=== PATIENT | female | born 1995 ===

== ENCOUNTER → 2022-03-11 | Outpatient (CLI) | payer OTHER ==
[2022-03-16 15:08] LABS: HPV 16 Negative (Negative); HPV 18 Negative (Negative); HPV OTHER HR TYPES Negative (Negative)
== END | disposition home or self-care (01) ==
LOC: LAB SHORT 16:45 → LAB 16:45
PROVIDERS: Physician Assistant
DX: Z01.419 Encounter for gynecological examination (general) (routine) without abnormal findings (principal)
CPT/HCPCS: 87624; G0145

== ENCOUNTER → 2024-09-20 | Outpatient (CLI) | payer OTHER | LOC: LAB SHORT 11:29 → LAB 11:29 | DX: R30.0 Dysuria (principal) | CPT/HCPCS: 87086 ==

== ENCOUNTER → 2024-11-01 | Outpatient (CLI) | payer OTHER | LOC: LAB 17:00 → LAB SHORT 17:00 | DX: Z34.02 Encounter for supervision of normal first pregnancy, second trimester (principal) | CPT/HCPCS: 87086 ==

== ENCOUNTER → 2024-12-10 | Outpatient (CLI) | payer OTHER | LOC: LAB 13:56 → LAB SHORT 13:56 | DX: R30.0 Dysuria (principal) | CPT/HCPCS: 87086 ==

== ENCOUNTER → 2025-02-12 | Outpatient (CLI) | payer OTHER | LOC: LAB 09:58 → LAB SHORT 09:58 | DX: Z34.03 Encounter for supervision of normal first pregnancy, third trimester (principal); Z3A.36 36 weeks gestation of pregnancy | CPT/HCPCS: 87081; 87086 ==

== ENCOUNTER → 2025-02-26 | Outpatient (CLI) | payer OTHER | LOC: LAB 19:42 → LAB SHORT 19:42 | DX: R30.0 Dysuria (principal) | CPT/HCPCS: 87086 ==

== ENCOUNTER 2025-03-12 18:30 | Inpatient (IN) | payer OTHER ==
[~2025-03-12] VITALS: Ht 162.6 cm; Wt 90.4 kg
[2025-03-12] MEDS ORDERED: FentaNYL Citrate 50 MCG/ML 2 ML Injection IV PRN (18:50)
[2025-03-12] MEDS ORDERED: Oxytocin 10 Unit / ML Vial IM PRN (18:50)
[2025-03-12] MEDS ORDERED: Carboprost Tromethamine 250 MCG/ML 1ML Amp IM PRN (18:50)
[2025-03-12] MEDS ORDERED: Tranexamic Acid 100 ML IV PRN (18:50)
[2025-03-12] MEDS ORDERED: Methylergonovine Maleate 0.2MG / ML 1ML Amp IM PRN (18:50)
[2025-03-12] MEDS ORDERED: Ondansetron HCl 2 MG / ML 2ML Vial IV PRN (18:55)
[2025-03-12] MEDS ORDERED: FentaNYL 2mcg/ml-Bup 0.1% Epd 250 ML EPI PRN (19:30)
[2025-03-12] MEDS ORDERED: ePHEDrine Sulfate 50 MG/ML 1ML Injection XX PRN (19:30)
[2025-03-12] MEDS ORDERED: FAMO40 PO ×2 (20:12)
[2025-03-12 20:22] LABS: BASOPHILS ABSOLUTE AUTO 0.04 K/mm3 (0.00-0.23); BASOPHILS PERCENT AUTO 0 % (0-2); EOSINOPHILS ABSOLUTE AUTO 0.38 K/mm3 (0.00-0.68); EOSINOPHILS PERCENT AUTO 4 % (0-6); Hematocrit 32.2 % (33.0-51.0); Hemoglobin 11.2 g/dL (11.5-16.0); IMMATURE GRAN ABSOLUTE AUTO 0.03 K/mm3 (0.00-0.10); IMMATURE GRAN PERCENT AUTO 0 % (0-1); LYMPHOCYTES ABSOLUTE AUTO 2.15 K/mm3 (0.84-5.20); LYMPHOCYTES PERCENT AUTO 21 % (21-46); MONOCYTES ABSOLUTE AUTO 0.92 K/mm3 (0.16-1.47); MONOCYTES PERCENT AUTO 9 % (4-13); Mean Corpuscular HGB Conc 34.8 g/dL (31.5-36.5); Mean Corpuscular Volume 84 fL (80-100); NEUTROPHILS ABSOLUTE AUTO 6.68 K/mm3 (1.96-9.15); NEUTROPHILS PERCENT AUTO 66 % (41-73); NRBC ABSOLUTE 0.00 K/mm3 (0.00-0.02); NRBC Auto 0.0 /100 WBC (0.0-0.2); Platelet Count 253 K/mm3 (150-400); RDW Coefficient Variation 13.2 % (11.7-14.2); RDW Standard Deviation 40.2 fL (35.1-46.3)
[2025-03-12 20:41] VITALS: BP 141/93
[2025-03-12] MEDS ORDERED: OXYTOCIN/RINGER'S LACTATE 500 ML IV SCH (22:05)
[2025-03-12 22:15] VITALS: BP 135/73
[2025-03-12 22:30] VITALS: BP 125/67
[2025-03-12 23:07] VITALS: BP 122/64
[2025-03-12 23:37] VITALS: BP 120/68
[2025-03-13] VITALS (54 sets, daily range): BP systolic 107–167; BP diastolic 60–101
[2025-03-13] MEDS ORDERED: OXYTOCIN/RINGER'S LACTATE 500 ML IV SCH (05:30)
[2025-03-13] MEDS ORDERED: FentaNYL Citrate 50 MCG/ML 2 ML Injection ONE (13:17)
[2025-03-13] MEDS ORDERED: CeFAZolin Sodium 2,000 MG in NS 100 ML IV PRN (21:40)
[2025-03-13] MEDS ORDERED: Citric Acid/Sodium Citrate 30 ML BTL PO PRN (21:45)
[2025-03-13] MEDS ORDERED: Metoclopramide HCl 5MG / ML 2ML Vial IV PRN (21:45)
[2025-03-14] VITALS (18 sets, daily range): BP systolic 98–151; BP diastolic 69–93
[2025-03-14] MEDS ORDERED: Ondansetron HCl 2 MG / ML 2ML Vial IV PRN ×2 (02:15→03:55)
[2025-03-14] MEDS ORDERED: HYDROmorphone HCl/Pf 1MG SYR IV PRN (02:15)
[2025-03-14] MEDS ORDERED: FentaNYL Citrate 50 MCG/ML 2 ML Injection IV PRN ×2 (02:15→09:25)
[2025-03-14] MEDS ORDERED: FentaNYL Citrate 50 MCG/ML 2 ML Injection ONE (02:28)
[2025-03-14] MEDS ORDERED: Oxytocin 10 Unit / ML Vial ONE ×2 (02:30→03:14)
[2025-03-14] MEDS ORDERED: Phenylephrine HCl 100 MCG/ML-NS 10MLSYR (1MG/10ML) ONE ×2 (02:46→03:46)
[2025-03-14] MEDS ORDERED: CeFAZolin Sodium 1000 mg Vial ONE (02:47)
[2025-03-14] MEDS ORDERED: Tranexamic Acid 100 ML IV ONE (03:04)
[2025-03-14] MEDS ORDERED: Ketorolac Tromethamine 30mg Vial ONE (03:08)
[2025-03-14 03:21] LABS: PCO2 Cord - Arterial 74.8 mmHg (40-50); PO2 Cord - Arterial < 12.0 mmHg (16-20); pH Cord - Arterial 7.08 (7.28-7.35)
[2025-03-14 03:24] LABS: PCO2 Cord - Venous 66.8 mmHg (40-50); PO2 Cord - Venous 14.5 mmHg (28-32); pH Umbilical Cord - Venous 7.13 (7.26-7.35)
[2025-03-14] MEDS ORDERED: Methylergonovine Maleate 0.2MG / ML 1ML Amp IM PRN (04:00)
[2025-03-14] MEDS ORDERED: Magnesium Hydroxide Conc 10 ML UDC PO PRN (04:00)
[2025-03-14] MEDS ORDERED: Ketorolac Tromethamine 30mg Vial IV SCH (04:00)
[2025-03-14] MEDS ORDERED: Carboprost Tromethamine 250 MCG/ML 1ML Amp IM PRN (04:05)
[2025-03-14 07:10] LABS: BASOPHILS ABSOLUTE AUTO 0.04 K/mm3 (0.00-0.23); BASOPHILS PERCENT AUTO 0 % (0-2); EOSINOPHILS ABSOLUTE AUTO 0.05 K/mm3 (0.00-0.68); EOSINOPHILS PERCENT AUTO 0 % (0-6); Hematocrit 31.0 % (33.0-51.0); Hemoglobin 10.6 g/dL (11.5-16.0); IMMATURE GRAN ABSOLUTE AUTO 0.08 K/mm3 (0.00-0.10); IMMATURE GRAN PERCENT AUTO 0 % (0-1); LYMPHOCYTES ABSOLUTE AUTO 0.89 K/mm3 (0.84-5.20); LYMPHOCYTES PERCENT AUTO 5 % (21-46); MONOCYTES ABSOLUTE AUTO 0.60 K/mm3 (0.16-1.47); MONOCYTES PERCENT AUTO 3 % (4-13); Mean Corpuscular HGB Conc 34.2 g/dL (31.5-36.5); Mean Corpuscular Volume 85 fL (80-100); NEUTROPHILS ABSOLUTE AUTO 16.23 K/mm3 (1.96-9.15); NEUTROPHILS PERCENT AUTO 91 % (41-73); NRBC ABSOLUTE 0.00 K/mm3 (0.00-0.02); NRBC Auto 0.0 /100 WBC (0.0-0.2); Platelet Count 186 K/mm3 (150-400); RDW Coefficient Variation 13.2 % (11.7-14.2); RDW Standard Deviation 41.1 fL (35.1-46.3)
--- NOTE | 2025-03-14 07:18 | NUR ---
03/14/25 0718 Mryiam,Dorothy BABY BOY BORN AT 0[birth year], APGARS 8/9, 8LBS.
[2025-03-14] MEDS ORDERED: Prenatal Vit/FE Fumarate/FA 1 Tab PO SCH (09:00)
[2025-03-14] MEDS ORDERED: LORazepam 2 MG/ML 1ML Injection IV PRN (09:25)
[2025-03-14] MEDS ORDERED: Ketorolac Tromethamine 30mg Vial IV PRN (09:45)
[2025-03-14] MEDS ORDERED: Methylergonovine Maleate 0.2MG / ML 1ML Amp IV ONE (10:05)
--- NOTE | 2025-03-15 01:22 | NUR ---
PT REQUESTED TO SLEEP FOR A FEW HOURS AND ASKED FOR VITALS TO BE DONE WHEN BABT NEEDED 24HR LABS AND BATH WERE GOING TO BE DONE. AT 0330
[2025-03-15 04:09] VITALS: BP 133/81
[2025-03-15 08:10] VITALS: BP 149/88
[2025-03-15 11:58] VITALS: BP 132/84
[2025-03-15] MEDS ORDERED: FLU VACC TS2025-26(6MOS UP)/PF 45 MCG/0.5 ML SYRINGE IM SCH (13:00)
[2025-03-15] MEDS ORDERED: IBUP800 PO ×2 (13:02)
[2025-03-15] MEDS ORDERED: OXYC5 PO ×2 (13:02)
== END 2025-03-15 13:50 | disposition home or self-care (01) | DRG 788 ==
LOC: OBS 18:30 → BC 18:30 → OBS 18:39 → BC 19:26
PROVIDERS: ADMIT Family Medicine
PROC: 10907ZC Drainage of Amniotic Fluid, Therapeutic from Products of Conception, Via Natural or Artificial Opening (ICD-10-PCS; 2025-03-13)
PROC: 4A1HXCZ Monitoring of Products of Conception, Cardiac Rate, External Approach (ICD-10-PCS; 2025-03-13)
PROC: 3E033VJ Introduction of Other Hormone into Peripheral Vein, Percutaneous Approach (ICD-10-PCS; 2025-03-13)
PROC: 10D00Z1 Extraction of Products of Conception, Low, Open Approach (ICD-10-PCS; principal; 2025-03-14 08:30)
DX: O48.0 Post-term pregnancy (principal); Z3A.40 40 weeks gestation of pregnancy; Z37.0 Single live birth; O76 Abnormality in fetal heart rate and rhythm complicating labor and delivery
CPT/HCPCS: 36415; 51702; 82803; 85025; 86850; 86900; 86901; 86923; 90471; A9270; J0456; J0690; J1885; J2210; J2371; J2405; J2590; J3010; J7050; J7120

== ENCOUNTER → 2025-03-12 | Outpatient (CLI) | payer OTHER ==
[~2025-03-12] MED LIST: FAMO40 PO; IBUP800 PO; OXYC5 PO
== END ==
LOC: LAB SHORT 09:00 → LAB 09:00
DX: R30.0 Dysuria (principal)
CPT/HCPCS: 87086